=== PATIENT | male | born 1970 | race Caucasian/White ===

== ENCOUNTER 2024-05-21 08:51 | Emergency (ER) | payer MEDICAID ==
[~2024-05-21] VITALS: Ht 175.3 cm; Wt 98.0 kg
[2024-05-21 08:54] VITALS: BP 143/85; PULSE 64; RESP 15; O2SAT 99
[2024-05-21] MEDS ORDERED: SULF1TAB49 PO (09:15)
[2024-05-21] MEDS ORDERED: LIDOcaine 1% W/epiNEPHrine 1:100,000 20ml vial IJ ONE (09:15)
[2024-05-21 09:44] VITALS: TEMP 98
== END 2024-05-21 09:58 | disposition home or self-care (01) ==
LOC: ER 08:52
DX: L02.212 Cutaneous abscess of back [any part, except buttock and flank] (principal); Z88.0 Allergy status to penicillin; Z79.2 Long term (current) use of antibiotics
CPT/HCPCS: 10060; 99283; A6266; A6402; A6449